=== PATIENT | male | born 1980 | race Caucasian/White ===

== ENCOUNTER 2021-05-14 18:52 | Emergency (ER) | payer OTHER, SELFPAY ==
--- NOTE | ~2021-05-14 | CT_ITS ---
EXAMINATION: CT FACIAL BONES WITHOUT CONTRAST CLINICAL INFORMATION: Facial trauma. COMPARISON: None TECHNIQUE: Contiguous axial CT images of the facial bones were obtained without contrast. Sagittal and coronal reformats were provided and reviewed. This CT examination was performed using dose optimization techniques as appropriate, variously including the following: *Automated exposure control. *Adjustment of mA and/or kV according to patient size (this includes techniques or standardized protocols for targeted exams where dose is matched to indication/reason for exam; i.e. extremities or head). *Use of iterative reconstruction technique. DLP: 344 mGy-cm FINDINGS: There is a mildly displaced maxillary bone fracture associated with the right central and lateral incisors. There is posterior displacement of the posterior maxillary wall adjacent to the roots of the incisors with the resultant fracture fragment measuring approximately 0.8 x 0.6 cm (ML by CC). The teeth are also displaced posteriorly. The teeth appear otherwise intact. There is prominent overlying soft tissue swelling anterior to the maxillary and mandibular teeth with subcutaneous air, consistent with an associated laceration. No additional fracture. The pterygoid plates are intact. The zygomatic arches are intact. The lamina papyracea are intact. The orbital rims are intact. The paranasal sinuses are well-aerated. No air-fluid levels are seen. There is mild rightward deviation of the nasal septum. The ostiomeatal complexes are clear. The lamina papyracea are intact. The ethmoid roofs are symmetric. The carotid canals are normally covered by bone. The mastoid air cells and visualized middle ear cavities are well-aerated. The orbits are normal. The TMJs are unremarkable. The imaged portions of the brain demonstrate no acute abnormality. CT/CT facial bones wo con IMPRESSION: Posteriorly displaced fracture of the right maxilla adjacent to the roots of the right central and lateral incisors. The posterior wall of the maxilla is fractured and slightly displaced posteriorly. No associated fracture of the adjacent teeth. Prominent overlying soft tissue swelling and associated soft tissue laceration.
[2021-05-14 18:57] VITALS: BP 145/94; PULSE 106; RESP 18; TEMP 36.8; O2SAT 98; BMI 29.1
--- NOTE | 2021-05-14 19:39 | PC.NURSE ---
pt playing soft ball, got hit in the mouth with the ball, upper lip lac and the tow front teeth pushed back and the lower lip also lac on the lower lip, some bleeding at this time.
[2021-05-14] MEDS: Lidocaine HCl 1 % MPF 5 ML VIAL 10 ML SUBCUT (19:53)
[2021-05-14] MEDS: oxyCODONE HCl Immed Release 5 MG TABLET PO (19:53)
[2021-05-14] MEDS: Lidocaine HCl Viscous 2 % 15 ML SOLUTION MUCOUS MEM (19:53)
[2021-05-14 22:24] VITALS: BP 133/86; PULSE 75; RESP 16; O2SAT 98
--- NOTE | 2021-05-14 22:51 | ED_ITS ---
HPI - Trauma General Chief Complaint: Wound/Laceration Stated Complaint: Mouth injury Time Seen by Provider: 05/14/21 19:42 Source: patient Mode of arrival: ambulatory Limitations: no limitations History of Present Illness HPI narrative: Otherwise healthy 40-year-old male who denies any past medical or surgical history presenting today with complaint of facial injury during softball game where he states softball coming full speed at him he thought he caught it and his glove subsequently hitting his face causing laceration to lip and dental injury. He denies any injury to the nose or orbital region. This occurred just prior to arrival. He is up-to-date on his tetanus vaccination. MD complaint: injury Onset (ago): minute(s) Loss of Consciousness: no Location: face Related Data Previous Rx's Medication Instructions Recorded amoxicillin 875 mg-potassium 1 tab PO Q12H 10 Days #20 tab 05/14/21 clavulanate 125 mg tablet (Augmentin) ibuprofen 800 mg tablet 800 mg PO Q8H PRN #30 tab 05/14/21 oxycodone 5 mg tablet 5 mg PO Q6H PRN #20 tab 05/14/21 oxycodone 5 mg tablet 5 mg PO Q8H PRN 5 Days #14 tab 05/14/21 Allergies Allergy/AdvReac Type Severity Reaction Status Date / Time No Known Allergies Allergy Verified 05/14/21 18:54 Review of Systems Review of Systems: Constitutional: No Weight loss, No Fever, No Chills, No Night Sweats, No Fatigue, No Malaise ENT/Mouth: No Hearing loss, No Ear Pain, No Nasal Congestion, No Sinus Pain, No Hoarseness, No sore throat, No Rhinorrhea, No Swallowing Difficulty Eyes: No Eye Pain, No Swelling, No Redness, No Foreign Body, No Discharge, No Vision Changes Cardiovascular: No Chest Pain, No SOB, No Dyspnea on Exertion, No Orthopnea, No Edema, No Palpitations Respiratory: No Cough, No Sputum, No Wheezing, No Dyspnea Gastrointestinal: No Nausea, No Vomiting, No Diarrhea, No Constipation, No abdominal Pain, No Hematochezia, No Melena Genitourinary: no irregular bleeding, No Dysuria, No Urinary Frequency, No Hematuria, No Urinary Incontinence, No Urgency, No Flank Pain, No Urinary Flow Changes, No Hesitancy Musculoskeletal: No joint pain, No Myalgias, No Joint Swelling Skin: No Skin Lesions, No rash Neuro: No Weakness, No Numbness, No Paresthesias, No Loss of Consciousness, No Dizziness, No Headache Psych: No Social Issues Heme/Lymph: No Bruising, No Bleeding,No Lymphadenopathy Endocrine: No Polyuria, No Polydipsia, No Temperature Intolerance Yes all other systems are reviewed and are negative [facility] Past Medical History Medical History (Updated 05/14/21 @ 23:03 by Navin Bernstein NP) Anxiety Social History Social History Patient Tobacco Use Status: Current everyday Tobacco user Use of substances other than those prescribed or required for medical reasons: No Advance Directives: No Advance Directives Information Provided: Yes Physical Exam Vital Signs: Vital Signs: Last Vital Signs Temp 98.2 F 05/14/21 18:57 Pulse 75 05/14/21 22:24 Resp 16 05/14/21 22:24 BP 133/86 05/14/21 22:24 Pulse Ox 98 05/14/21 22:24 Body Mass Index 29.1 Const: General: cooperative and healthy appearing; No acute distress or intoxicated appearing Nutritional Appearance: average body habitus Orientation/consciousness: patient oriented x3 HENMT: Head: Yes normal to inspection Head images: 1. 0.5 cm linear laceration 2. 3 cm curved laceration just proximal to the vermilion border into the inner mouth 3. Curved laceration on the inner aspect of the lip measuring 3 cm, does not cross the vermilion border Ears: hearing grossly normal bilaterally Teeth image: 1. 8. /7. Are pushed back about 2 cm Eyes: General: appearance normal, both eyes and all related structures Visual Romero: normal visual romero by confrontation Neck: Neck: Yes normal visual inspection, No positive Brudzinski's sign, No positive Kernig's sign and No tender Thyroid: Thyroid normal Chest: Chest palpation & inspection: normal inspection of the chest Resp: Effort & Inspection: normal respiratory effort Cardio: Jugular venous distension: no JVD Rate: regular rate Rhythm: regular rhythm Heart sounds: S1 normal heart sound present and S2 normal heart sound present GI: Inspection: Yes normal to inspection Percussion: Yes normal to percussion Auscultation: normal bowel sounds : General: Yes no CVA tenderness Back/Spine/Pelvis: Back: no CVA tenderness Skin: General skin exam: no rashes or lesions noted Neuro: General: patient oriented x3 Extrem: General: Yes normal to inspection Course Course Course Narrative: In review 40-year-old male sustaining injury to the face from softball resulting laceration to the upper and lower lip as well as fracture to the right maxilla resulting in posterior displaced right central and lateral incisors. Requiring extensive oral care, consultation with [facility] Dr. Henry who recommends referral to Oral surgery on outpatient basis and be placed on antibiotics. Does not require transfer. Lacerations repaired with absorbable sutures times 17, patient tolerated very well loose teeth secured with oral paste. 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 Referral made to [facility]. Copy of the imaging provided. Procedures Laceration Laceration 1: Site: lip (Upper and lower lip) Side (If applicable): right Size (cm): 7 Description: flap, irregular and clean Depth: simple, single layer Local Anesthetic: lidocaine 1% Amount of anesthesia used (mL): 10 Pre-repair: wound explored Skin layer closed with: other (Absorbable) Size (cm): 6-0 Number of sutures: 17 Technique: simple, interrupted MDM - Trauma Medical Records Attestation: I reviewed the patient's medical records. Lab Data Attestation: I reviewed the patient's lab results. Imaging Data Maxillofacial CT: Radiologist's impression: [place] [id number] CT Scan Report Signed Patient: Dragan Hernández MR#: [id number] : 1980 Acct:[id number] Age/Sex: 40 / M ADM Date: 05/14/21 Loc: HO.ED Attending Dr: Ordering Physician: Navin Bernstein NP Date of Service: 05/14/21 Procedure(s): CT facial bones wo con Accession Number(s): [id number] cc: Navin Bernstein NP~ EXAMINATION: CT FACIAL BONES WITHOUT CONTRAST CLINICAL INFORMATION: Facial trauma.? COMPARISON: None? TECHNIQUE: Contiguous axial CT images of the facial bones were obtained without contrast. Sagittal and coronal reformats were provided and reviewed.? This CT examination was performed using dose optimization techniques as appropriate, variously including the following: *Automated exposure control. *Adjustment of mA and/or kV according to patient size (this includes techniques or standardized protocols for targeted exams where dose is matched to indication/reason for exam; i.e. extremities or head). *Use of iterative reconstruction technique. DLP: 344 mGy-cm FINDINGS: There is a mildly displaced maxillary bone fracture associated with the right central and lateral incisors. There is posterior displacement of the posterior maxillary wall adjacent to the roots of the incisors with the resultant fracture fragment measuring approximately 0.8 x 0.6 cm (ML by CC). The teeth are also displaced posteriorly. The teeth appear otherwise intact. There is prominent overlying soft tissue swelling anterior to the maxillary and mandibular teeth with subcutaneous air, consistent with an associated laceration. No additional fracture. The pterygoid plates are intact. The zygomatic arches are intact. The lamina papyracea are intact. The orbital rims are intact. The paranasal sinuses are well-aerated. No air-fluid levels are seen. There is mild rightward deviation of the nasal septum. The ostiomeatal complexes are clear. The lamina papyracea are intact. The ethmoid roofs are symmetric. The carotid canals are normally covered by bone. The mastoid air cells and visualized middle ear cavities are well-aerated. The orbits are normal. The TMJs are unremarkable. The imaged portions of the brain demonstrate no acute abnormality. CT/CT facial bones wo con IMPRESSION: Posteriorly displaced fracture of the right maxilla adjacent to the roots of the right central and lateral incisors. The posterior wall of the maxilla is fractured and slightly displaced posteriorly. No associated fracture of the adjacent teeth. Prominent overlying soft tissue swelling and associated soft tissue laceration. Dictated By: EMMA LOU MD Signed By: <Electronically signed by EMMA LOU MD in OV> 05/14/212041 DD/ 41 TD/TT:? 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 Your lip lacerations were repaired with 17 absorbable sutures Keep site clean and dry Drink with a straw Rinse mouth twice a Day Your dental fracture was secured with dental paste, leave this in place Please call dental surgeon tomorrow to schedule appointment Return if any concerns or worsening symptoms Thank you Prescriptions: New amoxicillin-pot clavulanate [Augmentin] 875-125 mg tablet 1 tab PO Q12H 10 Days Qty: 20 RF: 0 ibuprofen 800 mg tablet 800 mg PO Q8H PRN (Reason: pain) Qty: 30 RF: 0 oxycodone 5 mg tablet 5 mg PO Q8H PRN (Reason: pain) 5 Days Qty: 14 RF: 0 oxycodone 5 mg tablet 5 mg PO Q6H PRN (Reason: pain) Qty: 20 RF: 0 Referrals: Physician,Unknown [Primary Care Provider] - 2 days ([facility] Oral surgeon in [place], [place] Located in: [facility] Address: [address] [place] [id number] Hours: Closed ? Opens 8AM Mon Check insurance info)
[2021-05-14] MEDS: oxyCODONE HCl Immed Release 5 MG TABLET 10 MG PO (22:57)
== END 2021-05-14 23:20 | disposition home or self-care (01) ==
PROVIDERS: Emergency Provider Emergency Medicine
DX: S01.511A Laceration without foreign body of lip, initial encounter (principal); G44.309 Post-traumatic headache, unspecified, not intractable; Y29.XXXA Contact with blunt object, undetermined intent, initial encounter; Y93.64 Activity, baseball; Y92.320 Baseball field as the place of occurrence of the external cause; Y99.9 Unspecified external cause status
CPT/HCPCS: 12014; 70486; 99284